=== PATIENT | female | born 1970 | race Two or more races ===

== ENCOUNTER 2017-04-14 12:01 | Outpatient (CLI) | payer OTHER ==
[~2017-04-14 12:01] MED LIST: COZAAR25 MG PO; KETO10TA2 PO; POTASSIUM600 MG PO; SEPTRA DS TABLE1 TAB PO; TENORMIN25 MG PO; VITAMIN D400 UNI2 PO
== END 2017-04-14 12:24 | disposition home or self-care (01) ==
LOC: LAB 12:01
DX: N20.1 Calculus of ureter (principal)

== ENCOUNTER 2017-08-20 09:07 | Outpatient (CLI) | payer OTHER | END 2017-08-20 09:15 | disposition home or self-care (01) | LOC: LAB 09:07 | DX: N20.0 Calculus of kidney (principal) ==

== ENCOUNTER 2018-06-27 11:08 | Emergency (ER) | payer OTHER ==
[~2018-06-27] VITALS: Ht 165.1 cm; Wt 68.5 kg
[2018-06-27] MEDS ORDERED: METOPROLOL ER-1 EAC1 (11:49)
[2018-06-27] MEDS ORDERED: HYDROCHLOROTHIA25 MG (11:50)
== END 2018-06-27 15:17 | disposition home or self-care (01) ==
LOC: ER 11:08
DX: K52.9 Noninfective gastroenteritis and colitis, unspecified (principal); M54.5 Low back pain

== ENCOUNTER 2018-10-25 08:47 | Emergency (ER) | payer OTHER ==
[~2018-10-25] VITALS: Ht 165.1 cm; Wt 70.3 kg
[~2018-10-25 08:47] MED LIST changes: +HYDROCHLOROTHIA25 MG; +METOPROLOL ER-1 EAC1
== END 2018-10-25 09:58 | disposition home or self-care (01) ==
LOC: ER 08:47
DX: R21 Rash and other nonspecific skin eruption (principal)

== ENCOUNTER 2020-04-30 07:49 | Outpatient (CLI) | payer OTHER | END 2020-04-30 07:54 | disposition home or self-care (01) | LOC: SONOGRAMA 07:49 → MAMO-SONO 07:49 → SONOGRAMA 07:54 | PROVIDERS: ATTEND Pathology Anatomic Pathology & Clinical Pathology | DX: E04.1 Nontoxic single thyroid nodule (principal) ==

== ENCOUNTER 2021-04-05 19:22 | Emergency (ER) | payer OTHER ==
[~2021-04-05] VITALS: Ht 167.6 cm; Wt 69.9 kg
== END 2021-04-05 23:54 | disposition home or self-care (01) ==
LOC: ER 19:22
DX: N20.2 Calculus of kidney with calculus of ureter (principal); N39.0 Urinary tract infection, site not specified; R31.29 Other microscopic hematuria; M54.59 Other low back pain

== ENCOUNTER 2022-08-16 10:33 | Outpatient (CLI) | payer OTHER | END 2022-08-16 10:46 | disposition home or self-care (01) | LOC: RAD 10:33 | PROVIDERS: ATTEND Urology | DX: N20.0 Calculus of kidney (principal) ==

== ENCOUNTER 2022-08-27 09:00 | Day surgery (SDC) | payer OTHER ==
[~2022-08-27 09:00] MED LIST changes: +ATENOL PO
== END 2022-08-27 14:45 | disposition home or self-care (01) ==
LOC: CIR LITO 09:00
PROVIDERS: ATTEND Urology
DX: N20.0 Calculus of kidney (principal); Z20.822 Contact with and (suspected) exposure to COVID-19; Z88.0 Allergy status to penicillin

== ENCOUNTER 2022-09-01 09:01 | Outpatient (CLI) | payer OTHER | END 2022-09-01 09:10 | disposition home or self-care (01) | LOC: RAD 09:01 | PROVIDERS: ATTEND Urology | DX: N20.0 Calculus of kidney (principal) ==

== ENCOUNTER 2022-10-21 08:26 | Outpatient (CLI) | payer OTHER | END 2022-10-21 08:39 | disposition home or self-care (01) | LOC: RAD 08:26 | PROVIDERS: ATTEND Urology | DX: N20.0 Calculus of kidney (principal) ==

== ENCOUNTER 2023-02-17 14:31 | Emergency (ER) | payer OTHER ==
[~2023-02-17] VITALS: Ht 167.6 cm; Wt 72.6 kg
== END 2023-02-17 18:05 | disposition home or self-care (01) ==
LOC: ER
DX: R53.81 Other malaise (principal); T18.9XXA Foreign body of alimentary tract, part unspecified, initial encounter; Z88.0 Allergy status to penicillin

== ENCOUNTER 2024-04-02 08:31 | Outpatient (CLI) | payer OTHER ==
[~2024-04-02 08:31] MED LIST changes: +ATENOLOL25 MG PO
== END 2024-04-02 08:33 | disposition home or self-care (01) ==
LOC: RAD 08:31
PROVIDERS: ATTEND Urology
DX: N20.0 Calculus of kidney (principal)

== ENCOUNTER 2024-04-16 08:25 | Outpatient (CLI) | payer OTHER | END 2024-04-16 08:36 | disposition home or self-care (01) | LOC: RAD 08:25 | DX: N20.0 Calculus of kidney (principal) ==